=== PATIENT | male | born 1995 | race African-American/Black ===

== ENCOUNTER 2016-10-13 13:45 | Emergency (ER) | payer SELFPAY ==
[~2016-10-13] VITALS: Ht 188 cm; Wt 98.0 kg
[2016-10-13 13:55] VITALS: BP 127/84
[2016-10-13] MEDS ORDERED: OXYcodone/APAP 5/325MG TABLET ONE (14:22)
[2016-10-13] MEDS ORDERED: DIPH,PERTUSS(ACELL),TET VAC/PF 0.5 ML IM-VACC ONE ×2 (14:22→14:30)
[2016-10-13] MEDS ORDERED: OXYcodone/APAP 5/325MG TABLET PO ONE (14:30)
== END 2016-10-13 15:03 | disposition home or self-care (01) ==
LOC: ED 14:30
DX: S51.031A Puncture wound without foreign body of right elbow, initial encounter (principal); W26.8XXA Contact with other sharp object(s), not elsewhere classified, initial encounter; Y93.89 Activity, other specified; Y92.410 Unspecified street and highway as the place of occurrence of the external cause; Y99.9 Unspecified external cause status
CPT/HCPCS: 90471; 90715